=== PATIENT | female | born 1975 | race Caucasian/White ===

== ENCOUNTER 2017-06-17 12:54 | Emergency (ER) | payer BC ==
[2017-06-17] MEDS: NS 0.9% 1000 ML* 2,000 ML IV ONE (13:40)
--- NOTE | 2017-06-17 14:08 | RAD ---
Indication: Syncope. Single frontal view of the chest performed at 1351 hours was reviewed. no prior study is available for comparison.. No mediastinal shift is noted. Heart is of normal size and configuration. Lung manrique appear clear. IMPRESSION: NO ACTIVE CARDIOPULMONARY DISEASE IS NOTED.
[2017-06-17 14:43] LABS: INR 0.92 (0.77-1.02)
[2017-06-17 15:31] LABS: ABS Basophils 0 10^3/ul (0-0.2); ABS Eosinophils 0 10^3/ul (0-0.6); ABS Lymphocytes 1.5 10^3/ul (1.0-4.8); ABS Monocytes 0.6 10^3/ul (0-0.8); ABS Nucleated RBC 0 10^3/ul; Eosinophil % 0.2 % (0-6); Hematocrit 35 % (35-47); Hemoglobin 12.2 g/dl (12.0-16.0); Lymphocyte % 13.8 % (25-47); Mean Corpuscular HGB Conc 35 g/dl (31-36); Mean Corpuscular Hemoglobin 32 pg (27-31); Mean Corpuscular Volume 93 fL (80-97); Mean Platelet Volume 9.7 um3 (7.4-10.4); Nucleated Red Blood Cells % 0; Platelet Count 144 10^3/ul (150-450); Red Blood Count 3.78 10^6/ul (4.0-5.4); Red Cell Distribution Width 13 % (10.5-15); White Blood Count 11.2 10^3/ul (3.5-10.8)
[2017-06-17 15:49] LABS: EGFR Non-African American 104.7 (>60)
--- NOTE | 2017-06-17 16:15 | ED ---
Colton Mccarty Jennifer, scribed for Jhon Buchanan MD on 06/17/17 at 1323 . Syncope/Near Syncope - HPI Summary HPI Summary: The patient is a 41 year old female who had a syncopal episode today. The patient reports she was bringing ovens upstairs at work when she felt very hot, dehydrated, and slow. She felt like she was going to pass out so she sat down when she began to sweat overwhelmingly. She went to take off her sweater when she passed out for a split second onto the floor. The patient denies head injury. Her coworkers found her and called EMS. The patient denies chest pain, palpitations, fever, chills, vomiting, and diarrhea. She has had hot flashes lately but states she is most likely going through menopause. The patient adds that she did not eat breakfast this morning, but that is normal for her. - History Of Current Complaint Chief Complaint: EDSyncope Time Seen by Provider: 06/17/17 13:15 Hx Obtained From: Patient Onset/Duration: Sudden Onset, Lasting Hours Timing: Seconds - "split second" Context: Unwitnessed, Loss Of Consciousness - for a "split second" Activity At Onset: Other - bringing ovens upstairs at work Associated Head Trauma: No Aggravating Factor(s): Nothing Alleviating Factor(s): Nothing Associated Signs And Symptoms: Other - hot, dehydrated, slow, sweating, LOC. NEGATIVE: chest pain, palpitations, fever, chills, vomiting, diarrhea - Allergies/Home Medications Allergies/Adverse Reactions: Allergies Allergy/AdvReac Type Severity Reaction Status Date / Time lactose Allergy GI Upset Verified 06/17/17 13:00 Home Medications: Home Medications NK [No Home Medications Reported] 06/17/17 [History Confirmed 06/17/17] PMH/Surg Hx/FS Hx/Imm Hx Endocrine/Hematology History: Denies: Hx Diabetes Cardiovascular History: Denies: Hx Hypertension Infectious Disease History: No Infectious Disease History: Denies: Traveled Outside the [place] in Last 30 Days - Family History Known Family History: Positive: Diabetes - Uncle - Social History 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 Negative: Fever , Chills Negative: Palpitations, Chest Pain Negative: Vomiting, Diarrhea All Other Systems Reviewed And Are Negative: Yes Physical Exam - Summary Physical Exam Summary: General: well-appearing, no pain distress Skin: warm, color reflects adequate perfusion, dry Head: normal Eyes: EOMI, CELINE ENT: normal Neck: supple, nontender Respiratory: CTA, breath sounds present Cardiovascular: RRR Abdomen: soft, nontender Bowel: present Musculoskeletal: normal, strength/ROM intact Neurological: normal, sensory/motor intact, A&O x3 Psychological: affect/mood appropriate Triage Information Reviewed: Yes Vital Signs On Initial Exam: Initial Vitals Temp Pulse Resp BP Pulse Ox 97.6 F 83 18 102/70 100 06/17/17 12:57 06/17/17 12:57 06/17/17 12:57 06/17/17 12:57 06/17/17 12:57 Vital Signs Reviewed: Yes Diagnostics - Vital Signs Vital Signs Temp Pulse Resp BP Pulse Ox 06/17/17 13:03 62 20 102/70 100 06/17/17 12:57 97.6 F 83 18 102/70 100 - Laboratory Lab Results: Lab Results 06/17/17 06/17/17 06/17/17 Range/Units 14:24 15:10 15:10 WBC (3.5-10.8) 10^3/ul RBC (4.0-5.4) 10^6/ul Hgb (12.0-16.0) g/dl Hct (35-47) % MCV (80-97) fL MCH (27-31) pg MCHC (31-36) g/dl RDW (10.5-15) % Plt Count (150-450) 10^3/ul MPV (7.4-10.4) um3 Neut % (Auto) (38-83) % Lymph % (Auto) (25-47) % Dillon % (Auto) (0-7) % Eos % (Auto) (0-6) % Baso % (Auto) (0-2) % Absolute Neuts (auto) (1.5-7.7) 10^3/ul Absolute Lymphs (auto) (1.0-4.8) 10^3/ul Absolute Monos (auto) (0-0.8) 10^3/ul Absolute Eos (auto) (0-0.6) 10^3/ul Absolute Basos (auto) (0-0.2) 10^3/ul Absolute Nucleated RBC 10^3/ul Nucleated RBC % INR (Anticoag Therapy) 0.92 (0.77-1.02) APTT 18.5 L (26.0-36.3) seconds Sodium 138 L (139-145) mmol/L Potassium 3.6 (3.5-5.0) mmol/L Chloride 106 (101-111) mmol/L Carbon Dioxide 27 (22-32) mmol/L Anion Gap 5 (2-11) mmol/L BUN 11 (6-24) mg/dL Creatinine 0.63 (0.51-0.95) mg/dL Est GFR ( Amer) 134.6 (>60) Est GFR (Non-Af Amer) 104.7 (>60) BUN/Creatinine Ratio 17.5 (8-20) Glucose 106 H (70-100) mg/dL Lactic Acid (0.5-2.0) mmol/L Calcium 8.6 (8.6-10.3) mg/dL Magnesium 1.8 L (1.9-2.7) mg/dL Total Bilirubin 0.60 (0.2-1.0) mg/dL AST 12 L (13-39) U/L ALT 10 (7-52) U/L Alkaline Phosphatase 45 (34-104) U/L Total Creatine Kinase 37 (10-223) U/L CK-MB (CK-2) 1.2 (0.6-6.3) ng/mL Troponin I 0.00 (<0.04) ng/mL C-Reactive Protein < 1.00 (< 5.00) mg/L B-Natriuretic Peptide 17 ( - 100) pg/mL Total Protein 5.5 L (6.4-8.9) g/dL Albumin 3.5 (3.2-5.2) g/dL Globulin 2.0 (2-4) g/dL Albumin/Globulin Ratio 1.8 (1-3) Lipase 23 (11.0-82.0) U/L TSH Pending Beta HCG, Quant 1.37 mIU/mL 06/17/17 06/17/17 Range/Units 15:10 15:10 WBC 11.2 H (3.5-10.8) 10^3/ul RBC 3.78 L (4.0-5.4) 10^6/ul Hgb 12.2 (12.0-16.0) g/dl Hct 35 (35-47) % MCV 93 (80-97) fL MCH 32 H (27-31) pg MCHC 35 (31-36) g/dl RDW 13 (10.5-15) % Plt Count 144 L (150-450) 10^3/ul MPV 9.7 (7.4-10.4) um3 Neut % (Auto) 80.2 (38-83) % Lymph % (Auto) 13.8 L (25-47) % Dillon % (Auto) 5.5 (0-7) % Eos % (Auto) 0.2 (0-6) % Baso % (Auto) 0.3 (0-2) % Absolute Neuts (auto) 9.0 H (1.5-7.7) 10^3/ul Absolute Lymphs (auto) 1.5 (1.0-4.8) 10^3/ul Absolute Monos (auto) 0.6 (0-0.8) 10^3/ul Absolute Eos (auto) 0 (0-0.6) 10^3/ul Absolute Basos (auto) 0 (0-0.2) 10^3/ul Absolute Nucleated RBC 0 10^3/ul Nucleated RBC % 0 INR (Anticoag Therapy) (0.77-1.02) APTT (26.0-36.3) seconds Sodium (139-145) mmol/L Potassium (3.5-5.0) mmol/L Chloride (101-111) mmol/L Carbon Dioxide (22-32) mmol/L Anion Gap (2-11) mmol/L BUN (6-24) mg/dL Creatinine (0.51-0.95) mg/dL Est GFR ( Amer) (>60) Est GFR (Non-Af Amer) (>60) BUN/Creatinine Ratio (8-20) Glucose (70-100) mg/dL Lactic Acid 0.7 (0.5-2.0) mmol/L Calcium (8.6-10.3) mg/dL Magnesium (1.9-2.7) mg/dL Total Bilirubin (0.2-1.0) mg/dL AST (13-39) U/L ALT (7-52) U/L Alkaline Phosphatase (34-104) U/L Total Creatine Kinase (10-223) U/L CK-MB (CK-2) (0.6-6.3) ng/mL Troponin I (<0.04) ng/mL C-Reactive Protein (< 5.00) mg/L B-Natriuretic Peptide ( - 100) pg/mL Total Protein (6.4-8.9) g/dL Albumin (3.2-5.2) g/dL Globulin (2-4) g/dL Albumin/Globulin Ratio (1-3) Lipase (11.0-82.0) U/L TSH Beta HCG, Quant mIU/mL Result Diagrams: 06/17/17 15:10 06/17/17 15:10 Lab Statement: Any lab studies that have been ordered have been reviewed, and results considered in the medical decision making process. - Radiology CXR Xray Interpretation: No Acute Changes - NO ACTIVE CARDIOPULMONARY DISEASE IS NOTED. Dr. Buchanan has reviewed this report. Radiology Interpretation Completed By: Radiologist - EKG 13:30 Cardiac Rate: Bradycardia EKG Rhythm: Sinus Bradycardia - [address] Segment: Normal Ectopy: None Course/Dx Course Of Treatment: Allergies noted. DISCUSSED RESULTS WITH PATIENT. SHE FEELS IMPROVED AFTER IVF. F/U PMD; RETURN IF WORSE. - Diagnoses Provider Diagnoses: Near syncope Discharge - Sign-Out/Discharge Documenting (check all that apply): Discharge/Admit/Transfer - Discharge Plan Condition: Stable Disposition: HOME Patient Education Materials: Near Syncope (ED) Forms: *Work Release Referrals: [facility] [Outside] Additional Instructions: FOLLOW UP WITH YOUR DOCTOR. RETURN TO THE EMERGENCY DEPARTMENT FOR ANY WORSENING OF YOUR CONDITION OR QUESTIONS OR CONCERNS. - Billing Disposition and Condition Condition: STABLE Disposition: HOME The documentation as recorded by the Colton aggarwal Jennifer accurately reflects the service I personally performed and the decisions made by me, Jhon Buchanan MD.
[2017-06-17 16:44] VITALS: BP 101/61
== END 2017-06-17 16:43 | disposition home or self-care (01) ==
LOC: ED 12:54
DX: R55 Syncope and collapse (principal); F17.200 Nicotine dependence, unspecified, uncomplicated
CPT/HCPCS: 36415; 71045; 80053; 82550; 82553; 83605; 83690; 83735; 83880; 84443; 84484; 84702; 85025; 85610; 85730; 86140; 93005; 96360; 96361; 99283

== ENCOUNTER 2017-09-19 20:13 | Emergency (ER) | payer BC ==
[2017-09-19] MEDS ORDERED: oxyCODONE/Acetamin 5/325 MG* TAB PO ONE (20:42)
[2017-09-19] MEDS ORDERED: Ibuprofen TAB* 600 MG PO ONE (20:43)
--- NOTE | 2017-09-19 20:52 | ED ---
Lower Extremity - HPI Summary HPI Summary: This is jasen Timmons documenting for attending Rustam Mcmanus MD. This patient is a 42 year old F presenting to ED with a chief complaint of L foot pain s/p falling down 3-4 flights of stairs earlier today. Patient and family is moving houses and while moving a washer, she fell backwards down the stairs and partnre stated the washer landed on her L foot. Partner also stated she hit her shoulder but patient is not c/o shoulder pain. The patient also reports she has ecchymosis on her L lower extremity from dropping a couch on it 2 days ago. The patient rates the pain 4/10 in severity. Symptoms aggravated by nothing. Symptoms alleviated by nothing. - History of Current Complaint Chief Complaint: EDExtremityLower Stated Complaint: FALL Time Seen by Provider: 09/19/17 20:31 Hx Obtained From: Patient Mechanism Of Injury: Fall From Height Of: - 3-5 flights of stairs Onset of Pain: Immediate Onset/Duration: Still Present Severity Initially: Mild Severity Currently: Mild Pain Intensity: 4 Pain Scale Used: 0-10 Numeric Timing: Constant, Lasting Minutes Location: Is Discrete @ - L lower extremity Associated Signs And Symptoms: Positive: Other - ports she has ecchymosis on her L lower extremity from dropping a couch on it 2 days ago Aggravating Factor(s): Nothing Alleviating Factor(s): Nothing - Allergies/Home Medications Allergies/Adverse Reactions: Allergies Allergy/AdvReac Type Severity Reaction Status Date / Time lactose Allergy GI Upset Verified 06/17/17 13:00 PMH/Surg Hx/FS Hx/Imm Hx Endocrine/Hematology History: Denies: Hx Diabetes Cardiovascular History: Denies: Hx Hypertension Infectious Disease History: No Infectious Disease History: Denies: Traveled Outside the [place] in Last 30 Days - Family History Known Family History: Positive: Diabetes - Uncle - Social History Alcohol Use: None Substance Use Type: Reports: None Smoking Status (MU): Light Every Day Tobacco Smoker Review of Systems Negative: Fever Positive: Other - L foot pain, ecchymosis on her L lower extremity from dropping a couch on it 2 days ago All Other Systems Reviewed And Are Negative: Yes Physical Exam - Summary Physical Exam Summary: VITAL SIGNS: Reviewed. GENERAL: Patient is a well-developed and nourished FEMALE who is lying comfortable in the stretcher. Patient is not in any acute respiratory distress. HEAD AND FACE: No signs of trauma. No ecchymosis, hematomas or skull depressions. No sinus tenderness. EYES: PERRLA, EOMI x 2, No injected conjunctiva, no nystagmus. EARS: Hearing grossly intact. Ear canals and tympanic membranes are within normal limits. MOUTH: Oropharynx within normal limits. NECK: Supple, trachea is midline, no adenopathy, no JVD, no carotid bruit, no c- spine tenderness, neck with full ROM. CHEST: Symmetric, no tenderness at palpation LUNGS: Clear to auscultation bilaterally. No wheezing or crackles. CVS: Regular rate and rhythm, S1 and S2 present, no murmurs or gallops appreciated. ABDOMEN: Soft, non-tender. No signs of distention. No rebound no guarding, and no masses palpated. Bowel sounds are normal. EXTREMITIES: FROM in all major joints, no edema, no cyanosis or clubbing. Swelling and tenderness to L foot with mild ecchymosis NEURO: Alert and oriented x 3. No acute neurological deficits. Speech is normal and follows commands. SKIN: Dry and warm Triage Information Reviewed: Yes Vital Signs On Initial Exam: Initial Vitals Temp Pulse Resp BP Pulse Ox 100.2 F 79 18 111/70 99 09/19/17 20:23 09/19/17 20:23 09/19/17 20:23 09/19/17 20:23 09/19/17 20:23 Vital Signs Reviewed: Yes Diagnostics - Vital Signs Vital Signs Temp Pulse Resp BP Pulse Ox 09/19/17 20:23 100.2 F 79 18 111/70 99 - Laboratory Lab Statement: Any lab studies that have been ordered have been reviewed, and results considered in the medical decision making process. - Radiology bilateral foot XR Radiology Interpretation Completed By: ED Physician - No fractures seen. Pending radiologist official interpretation. bilateral ankle XR Radiology Interpretation Completed By: ED Physician Re-Evaluation - Re-Evaluation First Eval Re-Evaluation Time: 21:16 Comment: Discussed results and plan for discharge. Lower Extremity Course/Dx - Course Assessment/Plan: This patient is a 42 yo female who took a fall earlier today. She presents with mild swelling and tenderness over the L foot on exam. The XRs are all negative. She will be D/C home with crutches and Motrin. Patient understands and agrees. - Diagnoses Differential Diagnosis/HQI/PQRI: Positive: Contusion Provider Diagnoses: Contusion Discharge - Sign-Out/Discharge Documenting (check all that apply): Patient Departure - Discharge Plan Condition: Stable Disposition: HOME Prescriptions: Ibuprofen TAB* [Motrin TAB* 600 MG] 600 mg PO Q6H PRN #30 tab PRN Reason: Pain Patient Education Materials: Crutch Instructions (ED), Foot Contusion (ED) Forms: *Work Release Referrals: Brenda Mendez MD [Medical Doctor] - (Follow up with Dr. Mendez in 1-2 days.) Additional Instructions: Take Motrin for pain as needed. Follow up with Dr. Mendez (Ortho) in 1-2 days. No weight-bearing. RETURN TO THE EMERGENCY DEPARTMENT FOR CHANGING OR WORSENING SYMPTOMS.
[2017-09-19 21:50] VITALS: BP 120/80
--- NOTE | 2017-09-20 07:34 | RAD ---
HISTORY: fall, right ankle pain, right foot pain COMPARISONS: None VIEWS: 9, frontal views of both ankles, frontal oblique views of both ankles, frontal views of both feet, lateral views of the left and right ankle] [right foot, and oblique views of the left and right foot FINDINGS: Right: BONE DENSITY: Normal. BONES: There is no displaced fracture. JOINTS: There is no arthropathy. ALIGNMENT: There is no dislocation. The alignment is anatomic. SOFT TISSUES: Unremarkable. Left: BONE DENSITY: Normal. BONES: There is no displaced fracture. JOINTS: There is no arthropathy. There is a tibiotalar joint effusion. ALIGNMENT: There is no dislocation. The alignment is anatomic. SOFT TISSUES: Unremarkable. OTHER FINDINGS: None. IMPRESSION: LEFT ANKLE JOINT EFFUSION. NO ACUTE OSSEOUS INJURY BILATERALLY. IF SYMPTOMS PERSIST, RECOMMEND REPEAT IMAGING. R2
== END 2017-09-19 21:47 | disposition home or self-care (01) ==
LOC: ED 20:13
DX: S90.32XA Contusion of left foot, initial encounter (principal); W10.9XXA Fall (on) (from) unspecified stairs and steps, initial encounter; Y92.009 Unspecified place in unspecified non-institutional (private) residence as the place of occurrence of the external cause; M25.472 Effusion, left ankle; F17.200 Nicotine dependence, unspecified, uncomplicated
CPT/HCPCS: 99282; A9270-GY

== ENCOUNTER 2018-09-02 20:18 | Emergency (ER) | payer BC ==
[2018-09-02 20:29] VITALS: BP 105/68
--- NOTE | 2018-09-02 21:05 | UC ---
Cardiac HPI - HPI Summary HPI Summary: This patient is a 43-year-old female who presents to the urgent care with chief complaint of having an in the anterior aspect of the chest with radiation to the left rib cage and BACK. She reports that her son gave her strong hug and she felt a crack in the area and since then she is having pain. She denies any shortness of breath, denies any nausea vomiting diaphoresis or she has no other complaints. - History of Current Complaint Chief Complaint: UCUpperExtremity Stated Complaint: RIB INJURY Time Seen by Provider: 09/02/18 20:39 Hx Obtained From: Patient Hx Last Menstrual Period: 2016 Onset/Duration: Gradual Onset Pain Intensity: 4 - Allergy/Home Medications Allergies/Adverse Reactions: Allergies Allergy/AdvReac Type Severity Reaction Status Date / Time lactose Allergy GI Upset Verified 09/02/18 20:30 PMH/Surg Hx/FS Hx/Imm Hx Previously Healthy: Yes - Surgical History Surgical History: Yes Surgery Procedure, Year, and Place: ORAL SURGERY - Family History Known Family History: Positive: Diabetes - Uncle - Social History Alcohol Use: None Substance Use Type: None Smoking Status (MU): Current Every Day Smoker Type: Cigarettes Amount Used/How Often: 1 PPD Review of Systems All Other Systems Reviewed And Are Negative: Yes Constitutional: Positive: Negative Skin: Positive: Negative Eyes: Positive: Negative ENT: Positive: Negative Respiratory: Positive: Negative Cardiovascular: Positive: Negative Gastrointestinal: Positive: Negative Genitourinary: Positive: Negative Motor: Positive: Negative Neurovascular: Positive: Negative Musculoskeletal: Positive: Other: - Reports pain and chest pain Neurological: Positive: Negative Psychological: Positive: Negative Is Patient Immunocompromised?: No Physical Exam - Summary Physical Exam Summary: VITAL SIGNS: Reviewed. GENERAL: Patient is a thin female who is lying comfortably in the stretcher. Patient is not in any acute respiratory distress. HEAD AND FACE: No signs of trauma. No ecchymosis, hematomas or skull depressions. No sinus tenderness. EYES: PERRLA, EOMI x 2, No injected conjunctiva, no nystagmus. EARS: Hearing grossly intact. Ear canals and tympanic membranes are within normal limits. MOUTH: Oropharynx within normal limits. NECK: Supple, trachea is midline, no adenopathy, no JVD, no carotid bruit, no c- spine tenderness, neck with full ROM. CHEST: Symmetric, positive tenderness at palpation around the third and fourth rib in the anterior aspect of the chest. LUNGS: Clear to auscultation bilaterally. No wheezing or crackles. CVS: Regular rate and rhythm, S1 and S2 present, no murmurs or gallops appreciated. ABDOMEN: Soft, non-tender. No signs of distention. No rebound no guarding, and no masses palpated. Bowel sounds are normal. EXTREMITIES: FROM in all major joints, no edema, no cyanosis or clubbing. NEURO: Alert and oriented x 3. No acute neurological deficits. Speech is normal and follows commands. SKIN: Dry and warm Triage Information Reviewed: Yes Appearance: Well-Appearing Vital Signs: Initial Vital Signs Temp 98.1 F 09/02/18 20:24 Pulse 75 09/02/18 20:24 Resp 16 09/02/18 20:24 BP 105/68 09/02/18 20:24 Pulse Ox 100 09/02/18 20:24 Vital Signs Reviewed: Yes - Assessment/Plan Course Of Treatment: Date chest x-ray and repeat x-ray impression: Osteopenia cannot rule out an acute fracture. Patient was offered Toradol or ibuprofen but the patient declined. The patient is describing therefore won't give her any narcotics. However, within a prescription for [place]. Patient was discharged home with follow-up with PCP. She was recommended to go to the ER if the symptoms worsen. The patient understands and agrees. - Clinical Impression Provider Diagnosis: Rib pain Discharge - Sign-Out/Discharge Documenting (check all that apply): Patient Departure All imaging exams completed and their final reports reviewed: Yes - Discharge Plan Condition: Stable Disposition: HOME Prescriptions: Hydrocodone/Acetaminophen [[place] 5-325 Tablet] 1 each PO Q6H PRN #10 tablet MDD 4 PRN Reason: Pain Patient Education Materials: Rib Contusion (ED) Referrals: No Primary Care Phys,NOPCP [Primary Care Provider] - [facility] [facility] [Outside] Additional Instructions: Take medications as indicated. Follow-up with the PCP in the next couple days. If pain worsened recommends to go to the ER. - Billing Disposition and Condition Condition: STABLE Disposition: Home
== END 2018-09-02 21:10 | disposition home or self-care (01) ==
LOC: UCEAST 20:18
DX: R07.81 Pleurodynia (principal); F17.210 Nicotine dependence, cigarettes, uncomplicated
CPT/HCPCS: 99212; G0463

== ENCOUNTER 2019-02-22 14:03 | Emergency (ER) | payer BC ==
[2019-02-22 14:30] VITALS: BP 104/68
--- NOTE | 2019-02-22 14:44 | UC ---
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 - History of Current Complaint Chief Complaint: UCRespiratory Stated Complaint: COUGH,CONGESTION Time Seen by Provider: 02/22/19 14:36 Hx Obtained From: Patient Hx Last Menstrual Period: three years ago ?: No Onset/Duration: Sudden Onset, Lasting Days - 10 Timing: Constant Pain Intensity: 5 Pain Scale Used: 0-10 Numeric Character: Cough: Nonproductive Aggravating Factors: Deep Breaths, Recumbent Position Alleviating Factors: Nothing Associated Signs And Symptoms: Positive: Pleuritic Chest Pain, Wheezing, URI, Nasal Congestion - Allergies/Home Medications Allergies/Adverse Reactions: Allergies Allergy/AdvReac Type Severity Reaction Status Date / Time lactose Allergy GI Upset Verified 02/22/19 14:29 Home Medications: Home Medications Copper (Iud) [Paragard IUD] 1 unit INTRAUTERI ONCE 02/22/19 [History Confirmed 02/22/19] PMH/Surg Hx/FS Hx/Imm Hx Previously Healthy: Yes - Surgical History Surgical History: Yes Surgery Procedure, Year, and Place: ORAL SURGERY - Family History Known Family History: Positive: Diabetes - Uncle - Social History Occupation: Employed Full-time Lives: With Family Alcohol Use: None Substance Use Type: None Smoking Status (MU): Current Every Day Smoker Type: Cigarettes Amount Used/How Often: 1 PPD Cessation Counseling: Patient Advised to Stop - Immunization History Most Recent Influenza Vaccination: [id number] flu season Review of Systems All Other Systems Reviewed And Are Negative: Yes Constitutional: Positive: Negative Skin: Positive: Negative Eyes: Positive: Negative ENT: Positive: Nasal Discharge Respiratory: Positive: Cough Cardiovascular: Positive: Negative Gastrointestinal: Positive: Negative Genitourinary: Positive: Negative Motor: Positive: Negative Neurovascular: Positive: Negative Musculoskeletal: Positive: Negative Neurological: Positive: Negative Psychological: Positive: Negative Is Patient Immunocompromised?: No Physical Exam Triage Information Reviewed: Yes Appearance: Well-Appearing - appears older than stated age, No Pain Distress, Thin Vital Signs: Initial Vital Signs Temp 98.9 F 02/22/19 14:26 Pulse 80 02/22/19 14:26 Resp 18 02/22/19 14:26 BP 104/68 02/22/19 14:26 Pulse Ox 98 02/22/19 14:26 Vital Signs Reviewed: Yes Eye Exam: Normal Eyes: Positive: Conjunctiva Clear ENT Exam: Normal ENT: Positive: Normal ENT inspection, Hearing grossly normal, Pharynx normal, Nasal congestion, TMs normal, Uvula midline. Negative: Trismus, Muffled voice, Hoarse voice, Dental tenderness, Sinus tenderness Dental: Positive: Gross Decay/Caries @ Neck exam: Normal Neck: Positive: Supple, Nontender Respiratory Exam: Other Respiratory: Positive: Chest non-tender, No respiratory distress, No accessory muscle use, Wheezing - inspiratory and expiratory Cardiovascular Exam: Normal Cardiovascular: Positive: RRR, No Murmur, Pulses Normal, Brisk Capillary Refill Musculoskeletal Exam: Normal Musculoskeletal: Positive: Strength Intact, ROM Intact, No Edema Neurological Exam: Normal Neurological: Positive: Alert, Muscle Tone Normal Psychological Exam: Normal Skin Exam: Normal Respiratory Course/Dx - Course Course Of Treatment: albuterol with areochamber, prednisone, zithromax, increase fluids, smoking cesasation information follow with pcp - Differential Dx/Diagnosis Provider Diagnosis: Nicotine dependence with current use, Bronchitis, acute, with bronchospasm Discharge ED - Sign-Out/Discharge Documenting (check all that apply): Patient Departure All imaging exams completed and their final reports reviewed: No Studies - Discharge Plan Condition: Stable Disposition: HOME Prescriptions: Albuterol HFA INHALER* [Ventolin HFA Inhaler*] 2 puff INH Q4H PRN #1 mdi PRN Reason: wheeze/cough Azithromycin TAB* [Zithromax TAB (Z-UMAIR) 250 mg #6 tabs] 2 tab PO .TODAY, THEN 1 DAILY #1 umair predniSONE 20 mg TAB [Deltasone 20 MG TAB*] 40 mg PO DAILY 5 Days #10 tab Patient Education Materials: How to Stop Smoking (ED), Bronchospasm (ED), Acute Bronchitis (ED) Referrals: [facility] [Outside] - If Needed - Billing Disposition and Condition Condition: STABLE Disposition: Home
[2019-02-22] MEDS ORDERED: Albuterol/Ipratropium NEB.SOL* Albuterol 2.5 MG/Ipratropium 0.5 MG 3 ML INH ONE (14:45)
== END 2019-02-22 15:15 | disposition home or self-care (01) ==
LOC: UCEAST 14:03
DX: J20.9 Acute bronchitis, unspecified (principal); F17.210 Nicotine dependence, cigarettes, uncomplicated; Z91.011 Allergy to milk products
CPT/HCPCS: 99212; A9270-GY; G0463